=== PATIENT | male | born 1950 | race Caucasian/White ===

== ENCOUNTER → 2024-08-26 07:32 | Outpatient (REF) | payer OTHER, SELFPAY ==
[2024-08-26 08:05] LABS: % Basophils 0.8 % (0-2); % Immature Granulocytes 0.6 % (0-0.5); % Lymphocytes 16.7 % (20.5-51.1); % Monocytes 12.5 % (1.7-9.3); % Neutrophils 62.4 % (42.2-75.2); Absolute Basophils 0.1 10^3/uL (0-0.2); Absolute Eosinophils 0.6 10^3/uL (0-0.7); Absolute Immature Granulocytes 0.1 10^3/uL (0-0.05); Absolute Lymphocytes 1.3 10^3/uL (1.2-3.4); Absolute Neutrophils 4.9 10^3/uL (1.4-6.5); Hematocrit 37.5 % (39.0-52.0); Hemoglobin 12.5 g/dL (13.0-18.0); Mean Corp Hgb Conc. 33.3 g/dL (33.0-37.0); Mean Corpuscular Hgb 30.5 pg (27.0-31.0); Mean Corpuscular Volume 91.5 fL (80.0-94.0); Mean Platelet Volume 9.5 fL (7.4-10.4); Nucleated Red Blood Cells % 0 % (-); Platelet Count 276 10^3/uL (130-400); Red Cell Dist. Width 13.6 % (11.5-14.5); White Blood Cell Count 7.8 10^3/uL (4.8-10.8)
[2024-08-26 08:14] LABS: INR 1.05; PT 14.3 Sec (11.4-14.6)
[2024-08-26 08:16] LABS: Blood Urea Nitrogen 34 mg/dl (9-20); Calcium 10.5 mg/dl (8.4-10.2); Carbon Dioxide 25 mmol/L (22-30); Chloride 110 mmol/L (98-107); Glucose 101 mg/dl (70-99); Potassium 4.9 mmol/L (3.5-5.1); Sodium 145 mmol/L (135-145); eGFR 44.65
[2024-08-26 08:30] VITALS: BP 175/60; BP_SYST 61
--- NOTE | 2024-08-26 10:18 | W.PN.UPDATE ---
Update Note
Progress Note Update
Patient presented for renal biopsy today. He was found to have heart block on monitor. 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 His HR was in the low 40's, BP 155/64. He denies chest pain, dizziness,
or weakness.
Given new heart block and bradycardia, would prefer to have that worked up prior to elective biopsy.
Evaluated by molecular biology scientist information assurance, who felt he was safe to go home, but that he should make an outpatient appointment to get AV block worked up.
D/W patient, who understands and agrees with the plan. He will call to reschedule renal biopsy after he has been worked up for heart block.
== END ==
LOC: REG 07:32
PROVIDERS: ATTENDING PHYSICIAN Specialist; FAMILY PHYSICIAN Family Medicine
DX: R79.89 Other specified abnormal findings of blood chemistry (principal)
CPT/HCPCS: 36415; 80048; 85025; 85610; 93005

== ENCOUNTER → 2024-09-14 14:31 | Outpatient (REF) | payer OTHER, SELFPAY | LOC: RCS 14:31 | PROVIDERS: ATTENDING PHYSICIAN Internal Medicine Interventional Cardiology; FAMILY PHYSICIAN Family Medicine | DX: R00.1 Bradycardia, unspecified (principal) | CPT/HCPCS: 93306 ==

== ENCOUNTER 2024-11-25 06:53 | Outpatient (REF) | payer OTHER, SELFPAY ==
[2024-11-25] VITALS (12 sets, daily range): BP systolic 45–167; BP diastolic 54–77
[2024-11-25 07:11] LABS: % Eosinophils 6.9 % (0-6); % Immature Granulocytes 0.3 % (0-0.5); % Lymphocytes 19.4 % (20.5-51.1); % Monocytes 12.4 % (1.7-9.3); Absolute Basophils 0.1 10^3/uL (0-0.2); Absolute Eosinophils 0.5 10^3/uL (0-0.7); Absolute Lymphocytes 1.4 10^3/uL (1.2-3.4); Absolute Monocytes 0.9 10^3/uL (0.1-0.6); Absolute Neutrophils 4.3 10^3/uL (1.4-6.5); Hematocrit 37.3 % (39.0-52.0); Hemoglobin 12.8 g/dL (13.0-18.0); Mean Corp Hgb Conc. 34.3 g/dL (33.0-37.0); Mean Corpuscular Hgb 30.6 pg (27.0-31.0); Mean Corpuscular Volume 89.2 fL (80.0-94.0); Mean Platelet Volume 9.2 fL (7.4-10.4); Nucleated Red Blood Cells % 0 % (-); Platelet Count 325 10^3/uL (130-400); Red Blood Cell Count 4.18 10^6/uL (4.70-6.10); Red Cell Dist. Width 12.8 % (11.5-14.5); White Blood Cell Count 7.2 10^3/uL (4.8-10.8)
[2024-11-25 07:23] LABS: INR 0.99; PT 13.6 Sec (11.4-14.6)
[2024-11-25 07:42] LABS: Blood Urea Nitrogen 35 mg/dl (9-20); Calcium 10.5 mg/dl (8.4-10.2); Carbon Dioxide 22 mmol/L (22-30); Chloride 113 mmol/L (98-107); Glucose 92 mg/dl (70-99); Potassium 4.9 mmol/L (3.5-5.1); Sodium 143 mmol/L (135-145); eGFR 38.77
[2024-11-25 11:23] LABS: Glucose - Point of Care 114 mg/dl (70-99)
--- NOTE | 2024-11-25 13:01 | PTCARENOTE ---
Report given to Patricia CASTANEDA at 1300.
[2024-11-25 13:48] LABS: Hematocrit 33.4 % (39.0-52.0); Hemoglobin 11.7 g/dL (13.0-18.0)
== END 2024-11-25 14:20 | disposition home or self-care (01) ==
LOC: RADI 06:53
PROVIDERS: Radiology Vascular & Interventional Radiology; ATTENDING PHYSICIAN Specialist; FAMILY PHYSICIAN Family Medicine; OTHER PHYSICIAN Physician Assistant
DX: I12.9 Hypertensive chronic kidney disease with stage 1 through stage 4 chronic kidney disease, or unspecified chronic kidney disease (principal); N18.4 Chronic kidney disease, stage 4 (severe)
CPT/HCPCS: 36415; 50200; 76942; 80048; 82962; 85014; 85018; 85025; 85610; 88305; 99152; 99153